=== PATIENT | male | born 1940 | race Caucasian/White ===

== ENCOUNTER 2020-12-05 05:54 | Day surgery (SDC) | payer MEDICARE ==
[2020-11-29 11:54] LABS: BASOPHILS % (AUTO) 0.5 % (0-1); EOSINOPHILS # (AUTO) 0.1 X10'3 (0-0.9); EOSINOPHILS % (AUTO) 1.2 % (0-6); LYMPHOCYTES # (AUTO) 1.3 X10'3 (1.1-4.8); LYMPHOCYTES % (AUTO) 14.2 % (21-51); MEAN CORPUSCULAR HGB CONC 35.4 g/dL (33.0-36.5); MEAN CORPUSCULAR VOLUME 87.7 FL (78-98); MEAN PLATELET VOLUME 8.1 FL (7.4-10.4); MONOCYTES # (AUTO) 0.8 X10'3 (0-0.9); MONOCYTES % (AUTO) 8.8 % (2-12); NEUTROPHILS # (AUTO) 6.7 X10'3 (1.8-7.7); NEUTROPHILS % (AUTO) 75.3 % (42-75); PRE OP HEMATOCRIT 39.9 % (42.0-52.0); PRE OP HEMOGLOBIN 14.1 g/dL (14.0-17.9); PRE OP PLATELET COUNT 252 X10'3 (140-440); RED BLOOD COUNT 4.55 X10'6 (4.70-6.10); RED CELL DISTRIBUTION WIDTH 13.6 % (11.5-14.5)
[2020-11-29 12:04] LABS: ALBUMIN 4.1 G/DL (3.4-5.0); ALBUMIN/GLOBULIN RATIO 1.2 (1.1-1.5); ALKALINE PHOSPHATASE 93 IU/L (46-116); BLOOD UREA NITROGEN 19 MG/DL (7-18); BUN/CREATININE RATIO 17.6 (5.4-32.0); CHLORIDE 101 MMOL/L (99-107); CREATININE 1.08 MG/DL (0.60-1.10); PRE OP ALT 31 U/L (30-65); PRE OP ANION GAP 8 (8-16); PRE OP AST 24 U/L (10-37); PRE OP BILIRUB, TOTAL 0.8 MG/DL (0.0-1.0); PRE OP GLUCOSE 116 MG/DL (70-104); PRE OP POTASSIUM 4.5 MMOL/L (3.4-5.1); PRE OP SODIUM 138 MMOL/L (135-145); TOTAL CARBON DIOXIDE 29.5 MMOL/L (24-32); TOTAL PROTEIN 7.4 G/DL (6.4-8.2); eGFR 66 ML/MIN
[~2020-12-05] VITALS: Ht 175.3 cm; Wt 78.5 kg
[2020-12-05] VITALS (7 sets, daily range): BP systolic 126–178; BP diastolic 65–85
[~2020-12-05 05:54] MED LIST: ACIT10CA3 PO; AMLO5TAB16 PO; FURO20TA4 PO; HYDR50TA65 PO; PROBIOTIC; VALS160T30 PO; VITAMIN B; VITAMIN D3; cefazolin/dext.iso 2gm/100ml IV ONE; famotidine 20mg tablet PO ONE; ringers solution, lacted 1,000 ML IV SCH
[2020-12-05] MEDS ORDERED: LEVO125T PO (06:50)
[2020-12-05] MEDS ORDERED: LIDOcaine 1% 30ml preserv. free vial ONE (07:01)
[2020-12-05] MEDS ORDERED: BUPIVAcaine/PF 2.5mg/ml (0.25%) 10ml vial ONE (07:01)
[2020-12-05] MEDS ORDERED: sevoflurane 250ml liquid IH ONE (07:22)
[2020-12-05] MEDS ORDERED: fentaNYL/PF 50MCG/1 ML 2ML syringe ONE (07:32)
[2020-12-05] MEDS ORDERED: midazolam 1 mg/ML 2ml injection ONE (07:33)
[2020-12-05] MEDS ORDERED: propofol inj 20 ML IV ONE (07:35)
[2020-12-05] MEDS ORDERED: LIDOcaine 2% (20mg/ml) 5ml vial ONE (07:35)
[2020-12-05] MEDS ORDERED: ondansetron/PF 4mg/2ml inj ONE (07:43)
[2020-12-05] MEDS ORDERED: dexamethasone sod phosphate 4mg/ml inj. ONE (07:43)
[2020-12-05] MEDS ORDERED: ringers solution, lacted 1,000 ML IV SCH (08:05)
[2020-12-05] MEDS ORDERED: proCHLORperazine 10 MG/2 ml inj IV PRN (08:05)
[2020-12-05] MEDS ORDERED: morphine 2 MG/ML inj. syringe IV PRN (08:05)
[2020-12-05] MEDS ORDERED: ondansetron/PF 4mg/2ml inj IV PRN (08:05)
[2020-12-05] MEDS ORDERED: meperidine/PF 25mg/ml syringe IV PRN ×3 (08:05)
[2020-12-05] MEDS ORDERED: morphine 4 MG/ML inj SYRINge IV PRN (08:05)
[2020-12-05] MEDS ORDERED: acetaminophen 1,000mg/100ml IV 100 ML IV ONE (08:05)
[2020-12-05] MEDS ORDERED: ePHEDrine 50MG/ML INJ. ONE (08:15)
--- NOTE | 2020-12-05 08:24 | NUR ---
Received from OR via JT, accompanied by Anesthesiologist DR WOODS and report given by Anesthesiologist. PT DROWSY, DENIES PAIN, RIGHT GROIN W/INCISION W/DERMABOND CDI. Addendum: 12/05/20 at 0848 by Jihan Domínguez RN Amended: Links added.
[2020-12-05] MEDS ORDERED: HYDROcodone/acetaminophen 5mg/325mg tablet PO PRN (08:30)
--- NOTE | 2020-12-05 09:34 | NUR ---
PT ABLE TO AMBULATE SAFELY, DENIES PAIN, D/C INSTRUCTIONS GIVEN AND GONE OVER W/PT AND PTS WHO VERBALIZED UNDERSTANDING. PT DC'D TO HOME VIA W/C TO PRIVATE VEHICLE W/O INCIDENT. Addendum: 12/05/20 at 0950 by Jihan Domínguez RN Amended: Links added.
== END 2020-12-05 09:34 | disposition home or self-care (01) ==
LOC: PAS 05:54
PROVIDERS: ATTEND Surgery
DX: R59.0 Localized enlarged lymph nodes (principal); I10 Essential (primary) hypertension; E03.9 Hypothyroidism, unspecified; Z79.899 Other long term (current) drug therapy; Z98.890 Other specified postprocedural states; Z96.651 Presence of right artificial knee joint; Z87.891 Personal history of nicotine dependence; Z80.3 Family history of malignant neoplasm of breast
CPT/HCPCS: 36415; 38531; 80053; 82948; 85025; 93005; J1100; J2001; J2250; J2405; J2704; J3010; J3490; J7120; Z7506; Z7508; Z7512; A4215; A4618; A7000